=== PATIENT | male | born 1980 | race Caucasian/White ===

== ENCOUNTER → 2018-12-14 12:04 | Outpatient (CLI) | payer MEDICAID | END | disposition home or self-care (01) | LOC: D.MRI 12:04 | PROVIDERS: ATTEND Orthopaedic Surgery | DX: M25.521 Pain in right elbow (principal) ==

== ENCOUNTER 2019-01-15 12:15 | Day surgery (SDC) | payer MEDICAID ==
[2019-01-15 13:53] VITALS: BP 108/74; BMI 21.5
[2019-01-15] MEDS ORDERED: HYDROCODON-ACE1 EA10 PO (15:40)
--- NOTE | 2019-01-15 16:08 | NUR ---
1600-RECD FROM PACU. DROWSY. RESP WITH EASE. IV PATENT. ARM IN A SLING. DENIES PAIN.
--- NOTE | 2019-01-15 16:30 | NUR ---
TOLERATING FL DIET. FRIEND AT BEDSIDE. SLING IN USE TO RUE. EXTREMITY NUMB.
--- NOTE | 2019-01-15 17:00 | NUR ---
IV DC'D WITH CATHETER INTACT BY Keo BENSON RN
--- NOTE | 2019-01-15 17:15 | NUR ---
WRITTEN AND VERBAL DC INST. GIVEN TO PT ALONG WITH RX. VERBALIZED UNDERSTANDING. NO TRANSPORTATION AVAILABLE FOR PATIENT AT THIS TIME. THEY ARE TRYING TO FIND SOMEONE TO COME AND GET THEM.
--- NOTE | 2019-01-15 17:55 | NUR ---
DC'D HOME WITH FRIEND VIA PRIVATE VEHICLE. STABLE AT TIME OF DC.
--- NOTE | 2019-01-16 11:46 | OP ---
PATIENT NAME: ZORA MABRY JR MEDICAL RECORD: [id number] :80 LOCATION:[facility] ADMISSION DATE: SURGEON: GABRIEL CORTES MD DATE OF OPERATION: 01/15/2019 PREOPERATIVE DIAGNOSIS: Recalcitrant right lateral epicondylitis. POSTOPERATIVE DIAGNOSIS: Recalcitrant right lateral epicondylitis. PROCEDURE: Right lateral epicondylectomy with debridement. SURGEON: Gabriel Cortes MD LINE MAINTENANCE TECHNICIAN: CHARMAINE Sahu INTRAOPERATIVE COMPLICATIONS: None. SUMMARY OF PATHOLOGIC FINDINGS: The patient had tear of ECRL and ECRB as predicted by the MRI. This required elliptical incision of the insertional extensor mass with reapproximation to the epicondylectomy base. OPERATIVE SUMMARY IN DETAIL: After obtaining the appropriate preoperative orthopedic surgery consent as well as anesthetic consultation, evaluation, and clearance, the patient was brought to the operating room and placed on the operating table in the supine position. After general laryngeal mask airway was administered, tourniquet was placed about the proximal aspect of the right upper extremity. The right upper extremity was then prepped and draped in routine sterile fashion. The arm was elevated, exsanguinated, and the tourniquet was inflated to 350 mmHg. Incision was made from just posterior to the lateral epicondyle approximately 4 cm distally in a straight line. This incision was carried directly down to the extensor mechanism. Findings were noted as above. The torn areas of the extensor mechanism were excised in an elliptical fashion and the lateral epicondyle was exposed for lateral epicondylectomy done by a sagittal saw. At this point, after irrigation, a single 3.0 SutureTak was placed in the lateral epicondyle. The #1 FiberWire were then utilized to reapproximate the insertional base back over the bleeding bone bed. Further closure at this point was achieved with #1 Vicryl. Having completed this, the skin was closed with 2-0 Vicryl and 4-0 Prolene by Rk Carlin APN. Sterile dressings were applied. Tourniquet was deflated. The patient was awakened and taken to the recovery room in stable condition. All final needle and sponge counts were correct. TRANSINT:[id number] Voice Confirmation ID: [id number] DOCUMENT ID: [id number] GABRIEL CORTES MD at [id number] CC: [id number] DICTATION DATE: 01/15/19 1721 [place] SOLICITOR: 01/15/192026 [facility] SDC 01/15/[address] [id number] [facility] [id number]
== END 2019-01-15 17:55 | disposition home or self-care (01) ==
LOC: D.OPS 12:15 → D.PAN 17:45 → D.OPS 17:45
PROVIDERS: ATTEND Orthopaedic Surgery
DX: M77.11 Lateral epicondylitis, right elbow (principal)

== ENCOUNTER 2019-01-24 01:55 | Emergency (ER) | payer MEDICAID ==
[~2019-01-24] VITALS: Ht 180.3 cm; Wt 71.4 kg
[~2019-01-24 01:55] MED LIST: HYDROCODON-ACE1 EA10 PO
[2019-01-24 02:00] VITALS: Ht 180.3 cm; Wt 71.4 kg
[2019-01-24 04:00] VITALS: BP 117/81
== END 2019-01-24 04:46 | disposition home or self-care (01) ==
LOC: D.ER 01:55
DX: M25.521 Pain in right elbow (principal); Y04.2XXA Assault by strike against or bumped into by another person, initial encounter; Y93.89 Activity, other specified; Y92.019 Unspecified place in single-family (private) house as the place of occurrence of the external cause

== ENCOUNTER → 2021-01-02 14:55 | Outpatient (CLI) | payer MEDICAID ==
[2019-01-24 02:00] VITALS: BMI 21.9
== END | disposition home or self-care (01) ==
LOC: D.MRI 14:55
PROVIDERS: ATTEND Clinical Nurse Specialist Family Health
DX: M25.522 Pain in left elbow (principal)